=== PATIENT | female | born 1965 | race Two or more races ===

== ENCOUNTER 2019-01-02 14:50 | Emergency (ER) | payer OTHER ==
[~2019-01-02] VITALS: Ht 149.9 cm; Wt 70.8 kg
[2019-01-02] MEDS ORDERED: SODIUM CHLORIDE 0.9% 1,000 ML IV ONE (16:09)
[2019-01-02] MEDS ORDERED: ONDANSETRON HCL 4 MG/2 ML VIAL IV ONE (16:15)
[2019-01-02] MEDS ORDERED: MORPHINE SULF INJ 2 MG/ML SYRINGE 1ML IV ONE ×2 (16:15→20:00)
[2019-01-02 16:21] LABS: Basophils # (auto) 0 uL; Basophils % (auto) 0.8 % (0.0-2.0); Eosinophils # (auto) 0.1 uL; Eosinophils % (auto) 1.9 % (0.0-7.0); Hematocrit 38.9 % (36.0-46.0); Hemoglobin 12.5 g/dL (12.2-16.2); Lymphocytes # (auto) 2.3 uL; Lymphocytes % (auto) 38.7 % (10.0-50.0); Mean Corpuscular Hemoglobin 29.8 pg (28.0-32.0); Mean Corpuscular Hgb Conc. 32.2 g/dL (32.0-36.0); Mean Corpuscular Volume 92.6 fL (80.0-100.0); Monocytes # (auto) 0.4 uL; Monocytes % (auto) 5.9 % (0.0-12.0); Neutrophils # (auto) 3.1 uL; Neutrophils % (auto) 52.7 % (37.0-80.0); Nucleated Red Blood Cells % 0.1 %; Platelet Count (auto) 200 10^3/uL (140-450); Red Cell Distribution Width 13.6 % (11.8-14.3)
[2019-01-02 16:29] LABS: Albumin 3.1 g/dL (3.4-5.0); Anion Gap 12 (5-15); Blood Urea Nitrogen 15 mg/dL (7-18); Calcium 8.5 mg/dL (8.5-10.1); Carbon Dioxide 24 mmol/L (21-32); Chloride 102 mmol/L (98-107); Potassium 4.5 mmol/L (3.5-5.1); Sodium 138 mmol/L (136-145)
[2019-01-02 16:32] LABS: Alanine Aminotransferase 31 U/L (13-56); Aspartate Aminotransferase 12 U/L (15-37); Bilirubin, Total 0.4 mg/dL (0.2-1.0); GFR African American 73 mL/min; GFR Non-African American 60 mL/min
[2019-01-02 16:38] LABS: Alkaline Phosphatase 196 U/L (45-117)
[2019-01-02 16:42] LABS: Glucose 507 mg/dL (74-106)
[2019-01-02] MEDS ORDERED: InsuLIN REG 1unit/0.01ml Soln (100units/ml) IV ONE ×2 (16:45→19:45)
[2019-01-02 17:00] LABS: INR < 0.93 (0.9-1.15); Partial Thromboplastin Time 23.3 sec (23.64-32.05)
[2019-01-02 17:13] LABS: Urine Bacteria MOD /hpf (None Seen); Urine Blood Negative /uL (Negative); Urine Mucus FEW (None Seen); Urine Specific Gravity 1.025 (1.001-1.035); Urine WBC 2 /hpf (0 - 5)
[2019-01-02 17:25] LABS: BUN/Creatinine Ratio 14.7
[2019-01-02] MEDS ORDERED: SODIUM CHLORIDE 0.9% 500 ML IV ONE (19:39)
[2019-01-02] MEDS ORDERED: NITROFURANTOIN (MONO) 100 mg CAP PO ONE (19:45)
[2019-01-02] MEDS ORDERED: metroNIDAZOLE 500 MG TAB PO ONE (20:45)
[2019-01-02 23:31] VITALS: BP 121/75
== END 2019-01-02 23:39 | disposition short-term general hospital (02) ==
LOC: EDBD 14:50 → ER 14:59
DX: K52.9 Noninfective gastroenteritis and colitis, unspecified (principal); N39.0 Urinary tract infection, site not specified; R73.9 Hyperglycemia, unspecified; E78.5 Hyperlipidemia, unspecified; Z90.49 Acquired absence of other specified parts of digestive tract; Z90.710 Acquired absence of both cervix and uterus
CPT/HCPCS: 36415; 74176; 80053; 81001; 82962; 83690; 84484; 84702; 85025; 85610; 85730; 87086; 94761; 96361; 96374; 96375; 96376; 99285; J1815; J2270; J2405; J7030; J7040

== ENCOUNTER → 2019-09-14 | Emergency (ER) | payer OTHER ==
[~2019-09-14] VITALS: Ht 152.4 cm; Wt 73.9 kg
[2019-09-14 15:21] VITALS: BP 129/72
== END | disposition left against medical advice (07) ==
LOC: ER 15:15
DX: R07.89 Other chest pain (principal); Z53.21 Procedure and treatment not carried out due to patient leaving prior to being seen by health care provider
CPT/HCPCS: 93005

== ENCOUNTER 2020-06-04 15:41 | Emergency (ER) | payer SELFPAY ==
[~2020-06-04] VITALS: Ht 162.6 cm; Wt 72.6 kg
[2020-06-04 16:29] VITALS: BP 127/80
[2020-06-04] MEDS ORDERED: KETOROLAC TROMETH 60MG/2ML VIAL IM ONE (17:15)
== END 2020-06-04 17:45 | disposition home or self-care (01) ==
LOC: EDBD 15:41 → ER 15:41
DX: S09.90XA Unspecified injury of head, initial encounter (principal); S00.03XA Contusion of scalp, initial encounter; I10 Essential (primary) hypertension; E78.5 Hyperlipidemia, unspecified; Z90.49 Acquired absence of other specified parts of digestive tract; Z90.710 Acquired absence of both cervix and uterus; W22.8XXA Striking against or struck by other objects, initial encounter; Y93.89 Activity, other specified; Y92.89 Other specified places as the place of occurrence of the external cause; Y99.8 Other external cause status
CPT/HCPCS: 70450; 96372; 99284; J1885

== ENCOUNTER 2021-02-07 12:30 | Emergency (ER) | payer OTHER ==
[~2021-02-07] VITALS: Ht 149.9 cm; Wt 74.8 kg
[2021-02-07 13:30] LABS: Basophils # (auto) 0.1 10 ^3/uL (0-0.2); Eosinophils # (auto) 0.1 10 ^3/uL (0-0.8); Eosinophils % (auto) 2.1 % (0.0-7.0); Hematocrit 39.7 % (36.0-46.0); Hemoglobin 13.1 g/dL (12.2-16.2); Lymphocytes % (auto) 31.9 % (10.0-50.0); Mean Corpuscular Hemoglobin 29.4 pg (28.0-32.0); Mean Corpuscular Hgb Conc. 32.9 g/dL (32.0-36.0); Mean Corpuscular Volume 89.5 fL (80.0-100.0); Monocytes # (auto) 0.4 10 ^3/uL (0-1.3); Monocytes % (auto) 6.7 % (0.0-12.0); Neutrophils # (auto) 3.7 10 ^3/uL (1.6-8.6); Neutrophils % (auto) 58.3 % (37.0-80.0); Nucleated Red Blood Cells % 0.1 %; Red Blood Cells 4.44 10^6/uL (4.0-5.20); Red Cell Distribution Width 14.4 % (11.8-14.3); White Blood Cell 6.3 10^3/uL (4.4-10.8)
[2021-02-07 13:50] LABS: Chloride 101 mmol/L (98-107); Potassium 4.4 mmol/L (3.5-5.1); Sodium 134 mmol/L (136-145)
[2021-02-07 14:01] LABS: Alanine Aminotransferase 29 U/L (13-56); Albumin 3.3 g/dL (3.4-5.0); Alkaline Phosphatase 131 U/L (45-117); Anion Gap 7 (5-15); Aspartate Aminotransferase 14 U/L (15-37); BUN/Creatinine Ratio 20.6; Bilirubin, Total 0.6 mg/dL (0.2-1.0); Blood Urea Nitrogen 14 mg/dL (7-18); CRP High Sensitivity 1.56 mg/dL (< 0.3); Calcium 9.6 mg/dL (8.5-10.1); Carbon Dioxide 26 mmol/L (21-32); GFR African American 116 mL/min; GFR Non-African American 95 mL/min; Glucose 307 mg/dL (74-106); Total Protein 7.8 g/dL (6.4-8.2)
[2021-02-07] MEDS ORDERED: cefTRIAXone 1GM/50ML D5W 50 ML IV ONE (15:00)
[2021-02-07 17:30] VITALS: BP 115/74
== END 2021-02-07 21:59 | disposition left against medical advice (07) ==
LOC: ER 12:30 → EDBD 12:30 → ER 21:59
DX: J18.9 Pneumonia, unspecified organism (principal); E11.9 Type 2 diabetes mellitus without complications; E78.5 Hyperlipidemia, unspecified; I10 Essential (primary) hypertension; Z90.49 Acquired absence of other specified parts of digestive tract; Z90.710 Acquired absence of both cervix and uterus; Z20.822 Contact with and (suspected) exposure to COVID-19
CPT/HCPCS: 36415; 71045; 80053; 82728; 84484; 85025; 86141; 87426; 93005

== ENCOUNTER 2024-07-25 17:28 | Inpatient (IN) | payer OTHER ==
[~2024-07-25] VITALS: Ht 165.1 cm; Wt 68.0 kg
[2024-07-25 18:00] VITALS: PULSE 91; RESP 17; O2SAT 95
--- NOTE | 2024-07-25 18:35 | DVH ---
EXAM: CT HEAD WITHOUT CONTRAST INDICATION: new onset sz TECHNIQUE: CT of the head without intravenous contrast. Radiation Dose Information: CT Dose: CTDI volume is 54.07 mGy. Dose-length product is 957.5 mGy*cm The dose indicators for CT are the volume Computed Tomography (CT) Dose Index (CTDIvol) and the Dose Length Product (DLP), and are measured in units of mGy and mGy-cm, respectively. These indicators are not patient dose, but values generated from the CT scanner acquisition factors. The report includes radiation exposure data for exposures received during this examination. COMPARISON: HEAD WITHOUT CONTRAST on DOS: 06/04/20 FINDINGS: There is no evidence of acute intracranial hemorrhage, extra-axial collection, mass effect, midline s hift, herniation or hydrocephalus. The ventricles, sulci and cisterns are age appropriate. The bowers-white differentiation is intact. Patchy periventricular and subcortical white matter hypoattenuation is nonspecific but may be related to small vessel ischemic disease. The visualized paranasal sinuses and mastoid air cells are clear. The surrounding soft tissues and osseous structures are unremarkable. IMPRESSION: 1. No acute intracranial hemorrhage 2. No CT findings of territorial ischemia. 3. No significant change of 06/04/2020
--- NOTE | 2024-07-25 18:35 | DVH ---
EXAM: XR Chest, 1 View CLINICAL INDICATION: new onset sz TECHNIQUE: Frontal view of the chest. COMPARISON: CHEST PORTABLE on DOS: 02/07/21 FINDINGS: LUNGS AND PLEURAL SPACES: Unremarkable. No consolidation. No pneumothorax. HEART: Unremarkable. No cardiomegaly. MEDIASTINUM: Unremarkable. Normal mediastinal contour. BONES/JOINTS: Unremarkable. No acute fracture. OTHER FINDINGS: . . . IMPRESSION: No acute cardiopulmonary process. HS:Y
--- NOTE | 2024-07-25 18:36 | ED.PDOC ---
History of Present Illness HPI Comments 59F BIBA w/ no prior Hx associated to the c/c of SZ. Pt reports on the pt having a new onset of a seizure which was witnessed and lasted 30 minutes. Pt has bilateral aspect to the tongue and is mildly bruised. PMHx of DM, High Lipids, and HTN. SHx of Cholecystectomy and Hysterectomy. Denies chills, fever, N/V/D, SOB, CP or other associated symptom's, modifiers, or recent injuries or sick contact at this time. Chief Complaint: Seizure Time Seen by MD: 17:20 Primary Care Provider: UNKNOWN Reviewed Notes: Nurses Notes, Medications, Allergies Allergies: Coded Allergies: NO KNOWN ALLERGIES (Unverified , 01/02/19) Mode of Arrival: EMS Severity: Moderate Timing: Hours Duration: Since onset, Hours Prehospital treatment: None Past Medical History PAST MEDICAL HISTORY: DM, High Lipids, HTN Surgical History: Cholecystectomy, Hysterectomy MACHINE TESTER History: No Pertinent MACHINE TESTER History Family History Family History: Reviewed,noncontributory to illness Social History Smoker: Non-Smoker Alcohol: Denies ETOH Use Drugs: Denies Drug Use Lives In: Home Constitutional: denies: chills, diaphoresis, fatigue, fever, malaise, sweats, weakness, others EENTM: denies: blurred vision, double vision, ear bleeding, ear discharge, ear drainage, ear pain, ear ringing, eye pain, eye redness, hearing loss, mouth pain, mouth swelling, nasal discharge, nose bleeding, nose congestion, nose pain, photophobia, tearing, throat pain, throat swelling, voice changes, others Respiratory: denies: cough, hemoptysis, orthopnea, SOB at rest, shortness of breath, SOB with excertion, stridor, wheezing, others Cardiovascular: denies: chest pain, dizzy spells, diaphoresis, Dyspnea on exertion, edema, irregular heart beat, left arm pain, lightheadedness, palpitations, PND, syncope, others Gastrointestinal: denies: abdomen distended, abdominal pain, blood streaked bowels, constipated, diarrhea, dysphagia, difficulty swallowing, hematemesis, melena, nausea, poor appetite, poor fluid intake, rectal bleeding, rectal pain, vomiting, others Genitourinary: denies: abnormal vagina bleeding, burning, dyspareunia, dysuria, flank pain, frequency, hematuria, incontinence, pain, , vagina discharge , urgency, others Neurological: reports: seizure; denies: dizziness, fainting, headache, left sided numbness, left sided weakness, numbness, paresthesia, pre-existing deficit, right sided numbness, right sided weakness, speech problems, tingling, tremors, weakness, others Musculoskeletal: denies: back pain, gout, joint pain, joint swelling, muscle pain, muscle stiffness, neck pain, others Integumetry: denies: bruises, change in color, change in hair/nails, dryness, laceration, lesions, lumps, rash, wounds, others Allergic/Immunocompromised: denies: Difficulty Healing, Frequent Infections, Hives, Itching, others Hematologic/Lymphatic: denies: anemia, blood clots, easy bleeding, easy bruising, swollen glands, others Endocrine: denies: excessive hunger, excessive sweating, excessive thirst, excessive urination, flushing, intolerance to cold, intolerance to heat, unexplained weight gain, unexplained weight loss, others Psychiatric: denies: anxiety, bipolar disorder, depression, hopeless, panic disorder, schizophrenia, sleepless, suicidal, others All Other Systems: Reviewed and Negative Physical Exam Exam Comments Bilateral aspect of the tongue that is mildly bruised General Appearance: No Apparent Distress, Normal HEENT: Normal ENT Inspection, Pharynx Normal, TMs Normal Neck: Full Range of Motion, Non-Tender, Normal, Normal Inspection Respiratory: Chest Non-Tender, Lungs Clear, No Accessory Muscle Use, No Respiratory Distress, Normal Breath Sounds Cardiovascular: No Edema, No JVD, No Murmur, No Gallop, Normal Peripheral Pulses, Regular Rate/Rhythm Breast Exam: Deferred Gastrointestinal: No Organomegaly, Non Tender, No Pulsatile Mass, Normal Bowel Sounds, Soft Genitalia: Deferred Pelvic: Deferred Rectal: Deferred Extremities: No calf tenderness, Normal capillary refill, Normal inspection, Normal range of motion, Non-tender, No pedal edema Musculoskeletal : Apperance: Normal Neurologic: Alert, thread checker II-XII nml as Tested, No Motor Deficits, Normal Affect, Normal Mood, No Sensory Deficits Cerebellar Function: Normal Reflexes: Normal Skin: Dry, Normal Color, Warm Lymphatic: No Adenopathy Was a procedure done? Was a procedure done?: No X-Ray, Labs, Meds, VS Vital Signs Date Time Temp Pulse Resp B/P (MAP) Pulse Ox O2 Delivery O2 Flow Rate FiO2 07/25/24 20:00 75 14 96 Room Air* 0 21 07/25/24 20:00 80 07/25/24 18:00 91 17 156/73 (100) 95 07/25/24 18:00 91 17 95 Room Air* 0 21 07/25/24 17:55 98.0 110 20 166/84 (111) 96 07/25/24 17:43 96 Lab Test 07/25/24 18:02 Range/Units White Blood Count 7.7 4.4-10.8 10^3/uL Red Blood Count 3.69 L 4.0-5.20 10^6/uL Hemoglobin 11.2 L 12.2-16.2 g/dL Hematocrit 34.5 L 36.0-46.0 % Mean Corpuscular Volume 93.3 80.0-100.0 fL Mean Corpuscular Hemoglobin 30.3 28.0-32.0 pg Mean Corpuscular Hemoglobin Concent 32.5 32.0-36.0 g/dL Red Cell Distribution Width 13.8 11.8-14.3 % Platelet Count 253 140-450 10^3/uL Mean Platelet Volume 9.9 6.9-10.8 fL Neutrophils (%) (Auto) 43.1 37.0-80.0 % Lymphocytes (%) (Auto) 47.9 10.0-50.0 % Monocytes (%) (Auto) 5.1 0.0-12.0 % Eosinophils (%) (Auto) 3.3 0.0-7.0 % Basophils (%) (Auto) 0.6 0.0-2.0 % Neutrophils # (Auto) 3.3 1.6-8.6 10 ^3/uL Lymphocytes # (Auto) 3.7 0.4-5.4 10 ^3/uL Monocytes # (Auto) 0.4 0-1.3 10 ^3/uL Eosinophils # (Auto) 0.3 0-0.8 10 ^3/uL Basophils # (Auto) 0 0-0.2 10 ^3/uL Nucleated Red Blood Cells 0.1 % Sodium Level 139 136-145 mmol/L Potassium Level 5.5 H 3.5-5.1 mmol/L Chloride Level 104 98-107 mmol/L Carbon Dioxide Level 29 20-31 mmol/L Anion Gap 6 5-15 Blood Urea Nitrogen 16 9-23 mg/dL Creatinine 1.09 H 0.550-1.02 mg/dL Glomerular Filtration Rate Calc 59 >90 mL/min BUN/Creatinine Ratio 14.7 10.0-20.0 Serum Glucose 235 H 74-106 mg/dL Calcium Level 10.1 8.7-10.4 mg/dL Troponin I High Sensitivity 3 L </=34 ng/L Time of 1ST Reevaluation: 17:50 Reevaluation 1ST: Unchanged Reevaluation 2ND: Unchanged Patient Education/Counseling: Diagnosis, Treatment, Prognosis, Need For Follow Up Family Education/Counseling: No Family Present Additional Information - I reviewed the following notes from patient's past medical encounters:02/07/21 - Additional information was gathered from interviewing the following independent Historian: EMT - The following tests were ordered, and results were reviewed by me: Labs, X- Ray, EKG, CT - I reviewed and agreed with the following test results read by other provider: X-ray, CT - I discussed treatments and results with medical personnel and: (consultants, family) pt has not had another seizure, but appears slightly confused and cannot tell me about the event. the workup is unremarkable. she has new onset seizure and remains postictal. i will consult britni to admit pt here for continual observation until she returns to normal mentation Dr Clay has agreed to admit her here if she is unable to transfer her in the next 4 hours #[id number] Departure 1 Departure Time of Disposition: 20:02 Impression: Primary Impression: New onset seizure Additional Impression: Postictal confusion Disposition: 09 ADMITTED INPATIENT Condition: Stable Critical Care Note Critical Care Time?: No Stability Stability form required: No I personally scribed for RAYMON VIVAS MD ([email or web address]) on 07/25/24 at 18:36. Electronically submitted by Emiliano Lawrence ([email or web address]). RAYMON VIVAS MD Jul 25, 2024 18:36
[2024-07-25 18:47] LABS: Basophils # (auto) 0 10 ^3/uL (0-0.2); Basophils % (auto) 0.6 % (0.0-2.0); Eosinophils # (auto) 0.3 10 ^3/uL (0-0.8); Eosinophils % (auto) 3.3 % (0.0-7.0); Hematocrit 34.5 % (36.0-46.0); Hemoglobin 11.2 g/dL (12.2-16.2); Lymphocytes # (auto) 3.7 10 ^3/uL (0.4-5.4); Lymphocytes % (auto) 47.9 % (10.0-50.0); Mean Corpuscular Hemoglobin 30.3 pg (28.0-32.0); Mean Corpuscular Hgb Conc. 32.5 g/dL (32.0-36.0); Mean Corpuscular Volume 93.3 fL (80.0-100.0); Monocytes # (auto) 0.4 10 ^3/uL (0-1.3); Monocytes % (auto) 5.1 % (0.0-12.0); Neutrophils # (auto) 3.3 10 ^3/uL (1.6-8.6); Neutrophils % (auto) 43.1 % (37.0-80.0); Nucleated Red Blood Cells % 0.1 %; Platelet Count (auto) 253 10^3/uL (140-450); Red Blood Cells 3.69 10^6/uL (4.0-5.20); Red Cell Distribution Width 13.8 % (11.8-14.3); White Blood Cell 7.7 10^3/uL (4.4-10.8)
--- NOTE | 2024-07-25 18:50 | ECG ---
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
[2024-07-25 18:54] LABS: Anion Gap 6 (5-15); Carbon Dioxide 29 mmol/L (20-31); Chloride 104 mmol/L (98-107); Sodium 139 mmol/L (136-145)
[2024-07-25 18:55] LABS: Calcium 10.1 mg/dL (8.7-10.4)
[2024-07-25 19:00] LABS: BUN/Creatinine Ratio 14.7 (10.0-20.0); Blood Urea Nitrogen 16 mg/dL (9-23)
[2024-07-25 19:02] LABS: Glucose 235 mg/dL (74-106); Potassium 5.5 mmol/L (3.5-5.1)
[2024-07-25 20:00] VITALS: PULSE 75; RESP 14; O2SAT 96
--- NOTE | 2024-07-25 22:50 | DVHHPRES ---
History of Present Illness Resident Creating Document: FELIX DRAKE RESIDENT History of Present Illness This is a 59-year-old female with past medical history of hypertension, hyperlipidemia, type 2 diabetes mellitus, urinary incontinence presented to the ED by EMS with a chief complaint of new onset seizure 2 times before coming to the ED. the patient states that this afternoon she was all right and was talking with her son and and she had 2 spontaneous unprovoked seizures lasts for a short time but didn't mention the time with tonic-clonic contraction of the whole body and associated with post ictal confusion and lip bites. She also mentioned she has no h/o of seizure before and and there is no family history of seizure as well. In the ED the patient was tachycardic, blood pressure was 166/84 and blood sugar was 235. Initial CT head without contrast revealed no acute intracranial abnormality. The patient denies headache, blurry vision, neck pain, generalized body ache, muscle spasm, abdominal pain, nausea, vomiting urgency, dysuria, hematuria, or any loss control of bowel and bladder. Past Medical History Hypertension, hyperlipidemia, Type 2 diabetes mellitus, urinary incontinence Past Surgical History Cholecystectomy, bilateral breast implant Family History None Past Social History Lives with family Nonsmoker, occasional drinker and never tried any drugs before Review of Systems Constitutional: No: Fever, Chills, Sweats, Weakness, Malaise, Other Eyes: No: Pain, Vision change, Conjunctivae inflammation, Eyelid inflammation, Other, Redness ENT: No: Ear pain, Ear discharge, Nose pain, Nose discharge, Nose congestion, Mouth pain, Mouth swelling, Throat pain, Throat swelling, Other Respiratory: No: Cough, Dry, Shortness of breath, SOB with excertion, Wheezing, Hemoptysis, Pleuritic Pain, Sputum, Wheezing, Other Cardiovascular: No: Chest Pain, Palpitations, Orthopnea, Paroxysmal Noc. Dyspnea, Edema, Lt Headedness, Other Gastrointestinal: No: Nausea, Vomiting, Abdominal Pain, Diarrhea, Constipation, Melena, Hematochezia, Other Genitourinary: No Dysuria, No Frequency, No Incontinence, No Hematuria, No Retention, No Other Musculoskeletal: No: other, neck pain, shoulder pain, arm pain, back pain, hand pain, leg pain, foot pain Skin: No: Rash, Lesions, Jaundice, Bruising, Other Neurological: No: Weakness, Numbness, Incoordination, Change in speech, Confusion, Seizures, Other Allergies: Coded Allergies: NO KNOWN ALLERGIES (Unverified , 01/02/19) Exam Vital Signs Vital Signs Date Time Temp Pulse Resp B/P (MAP) Pulse Ox O2 Delivery O2 Flow Rate FiO2 07/25/24 20:00 75 14 96 Room Air* 0 21 07/25/24 18:00 156/73 (100) 07/25/24 17:55 98.0 Exam Physical examination: General Appearance: Alert, Oriented X3, Cooperative, No acute distress HEENT: Atraumatic, PERRLA, EOMI, Mucous membrane moist/pink Respiratory: Clear to auscultation, Normal air movement Cardiovascular: Regular rate, Normal S1, Normal S2, No murmurs, no chest wall tenderness Abdominal: Normal bowel sounds, Soft, No tenderness, No hepatospenomegaly, No masses Extremities: No clubbing, No cyanosis, No edema, Normal pulses, No tenderness/swelling Skin: No rashes, No breakdown, No significant lesion Neuro: Normal gait, Normal speech, Strength at 5/5 X4 ext, Normal tone, Sensation intact, grossly intact cranial nerves. Psych/Mental Status: Mental status NL, Mood NL Labs/Xrays Labs Test 07/25/24 18:02 Range/Units White Blood Count 7.7 4.4-10.8 10^3/uL Red Blood Count 3.69 L 4.0-5.20 10^6/uL Hemoglobin 11.2 L 12.2-16.2 g/dL Hematocrit 34.5 L 36.0-46.0 % Mean Corpuscular Volume 93.3 80.0-100.0 fL Mean Corpuscular Hemoglobin 30.3 28.0-32.0 pg Mean Corpuscular Hemoglobin Concent 32.5 32.0-36.0 g/dL Red Cell Distribution Width 13.8 11.8-14.3 % Platelet Count 253 140-450 10^3/uL Mean Platelet Volume 9.9 6.9-10.8 fL Neutrophils (%) (Auto) 43.1 37.0-80.0 % Lymphocytes (%) (Auto) 47.9 10.0-50.0 % Monocytes (%) (Auto) 5.1 0.0-12.0 % Eosinophils (%) (Auto) 3.3 0.0-7.0 % Basophils (%) (Auto) 0.6 0.0-2.0 % Neutrophils # (Auto) 3.3 1.6-8.6 10 ^3/uL Lymphocytes # (Auto) 3.7 0.4-5.4 10 ^3/uL Monocytes # (Auto) 0.4 0-1.3 10 ^3/uL Eosinophils # (Auto) 0.3 0-0.8 10 ^3/uL Basophils # (Auto) 0 0-0.2 10 ^3/uL Nucleated Red Blood Cells 0.1 % Sodium Level 139 136-145 mmol/L Potassium Level 5.5 H 3.5-5.1 mmol/L Chloride Level 104 98-107 mmol/L Carbon Dioxide Level 29 20-31 mmol/L Anion Gap 6 5-15 Blood Urea Nitrogen 16 9-23 mg/dL Creatinine 1.09 H 0.550-1.02 mg/dL Glomerular Filtration Rate Calc 59 >90 mL/min BUN/Creatinine Ratio 14.7 10.0-20.0 Serum Glucose 235 H 74-106 mg/dL Calcium Level 10.1 8.7-10.4 mg/dL Troponin I High Sensitivity 3 L </=34 ng/L Assessment/Plan Assessment/Plan Assessment and plan: # New onset seizure - 2 unprovoked seizure at home before coming to the ED - CT head without contrast revealed no acute intracranial abnormality - Initial EKG demonstrated sinus rhythm and troponins are unremarkable - Ordered UDS, serum alcohol, creatine kinase, LFT, lactic acid and magnesium - Ordered EEG - Consulted Neurology. # Lactic acidosis - IV normal saline at 100 ml/hr - Monitor lactic acid # Hypomagnesemia - Magnesium oxide p.o. 400 mg once # Hyperkalemia - Hyperkalemia protocol management - Lokelma 10 mg b.i.d for 48 hour - Monitor BMP # Hypertensive urgency - Lisinopril 10 mg po daily. # Type 2 diabetes mellitus, HbA1C 10.5% - Lantus 10 unit at Q.AM and moderate sliding scale of insulin # PUD prophylaxis - Pepcid 20 mg po daily # DVT prophylaxis - Lovenox 40 mg sc daily. Goal of care discussed with patient for more than 20 minutes full code Plan discussed with Dr. Salazar Plan discussed with: Patient, Other My Orders Orders - FELIX DRAKE RESIDENT Procedure Category Date Status Time Admit ADMIT 07/25/24 Verified 22:48 Powdered Sugar Pulverizer Operator For AK[facility]IL 07/25/24 Verified 24 Hours 22:48 Date of Service: Jul 25, 2024 Billing Provider: VENKATA SALAZAR MD Common Visit Codes: [id number] INP/OBS CARE (HIGH) FELIX DRAKE RESIDENT Jul 25, 2024 22:50 VENKATA SALAZAR MD Jul 28, 2024 11:59
[2024-07-25] MEDS: ALBUTEROL SULF 2.5 MG/0.5ML(0.5%) NEB SOLN NEB ONE (23:14)
[2024-07-25] MEDS: FUROSEMIDE 20 MG/2 ML VIAL IV ONE (23:49)
[2024-07-25] MEDS: InsuLIN REG 1unit/0.01ml Soln (100units/ml) IV ONE (23:49)
[2024-07-25] MEDS: SODIUM ZIRCONIUM CYCL 10 GM PAK PO ONE (23:49)
[2024-07-25] MEDS: DEXTROSE (50%) 50ML SYRG IV ONE (23:51)
[2024-07-26] VITALS (9 sets, daily range): BP systolic 118–140; BP diastolic 47–73; PULSE 81–103; RESP 16–18; TEMP 97.6–99.1; O2SAT 88–95
[2024-07-26] MEDS ORDERED: DEXTROSE (50%) 50ML SYRG IV PRN (00:15)
[2024-07-26] MEDS ORDERED: ATOR80TA PO (00:17)
[2024-07-26] MEDS ORDERED: ASPI1TAB20 PO (00:17)
[2024-07-26] MEDS ORDERED: METF-372 PO (00:17)
[2024-07-26] MEDS ORDERED: LISI20TA56 PO (00:17)
[2024-07-26] MEDS ORDERED: OXYB5TAB14 GT (00:17)
[2024-07-26] MEDS ORDERED: LEVEMIR SC (00:17)
[2024-07-26 02:43] LABS: Alanine Aminotransferase 18 U/L (7-40); Albumin 4.1 g/dL (3.2-4.8); Alkaline Phosphatase 110 U/L (46-116); Anion Gap 7 (5-15); BUN/Creatinine Ratio 13.5 (10.0-20.0); Bilirubin, Total 0.5 mg/dL (0.2-1.0); Blood Urea Nitrogen 15 mg/dL (9-23); Carbon Dioxide 29 mmol/L (20-31); Chloride 104 mmol/L (98-107); Potassium 4.2 mmol/L (3.5-5.1); Sodium 140 mmol/L (136-145); Total Protein 6.5 g/dL (5.7-8.2)
[2024-07-26 03:29] LABS: Aspartate Aminotransferase 13 U/L (13-40); Glucose 294 mg/dL (74-106); Magnesium 1.5 mg/dL (1.6-2.6)
[2024-07-26 03:37] LABS: Lactic Acid w/Reflex 3.1 mmol/L (0.4-2.0)
[2024-07-26] MEDS: MAGNESIUM OXIDE 400 MG TAB PO ONE (04:33)
[2024-07-26] MEDS: SODIUM CHLORIDE 0.9% 1,000 ML IV SCH (04:34)
[2024-07-26 05:07] LABS: Urine Bacteria None Seen /hpf (None Seen)
[2024-07-26 05:34] LABS: Amphetamine Screen, Urine Neg (NEGATIVE); Barbiturate Scree,Urine Neg (NEGATIVE); Benzodiazephine Screen, Urine Neg (NEGATIVE); Cannabinoid Screen, Urine Neg (NEGATIVE); Cocaine Screen, Urine Neg (NEGATIVE); Opiate Scree,Urine Neg (NEGATIVE); Phencyclidine Screen, Urine Neg (NEGATIVE)
[2024-07-26 05:43] LABS: Urine Blood Negative /uL (Negative); Urine Clarity Clear (Clear); Urine Hyaline Cast FEW /lpf (0 - 2); Urine Protein, UAD TRACE (Negative); Urine Specific Gravity 1.009 (1.001-1.035); Urine Squamous Epithelial Cell FEW /hpf (<5); Urine Urobilinogen Normal (Negative); Urine WBC 1 /hpf (0 - 5)
[2024-07-26 05:54] LABS: Urine Color STRAW (Yellow)
[2024-07-26] MEDS ORDERED: SODIUM ZIRCONIUM CYCL 10 GM PAK PO SCH (06:00)
[2024-07-26] MEDS: ACCU-CHEK COMFORT CURVE STRIP VI SCH (06:12)
[2024-07-26] MEDS: INSULIN LANTUS (GLARGINE) 1 /0.01ml (100units/ml) SC SCH (06:17)
[2024-07-26] MEDS: InsuLIN REG 1unit/0.01ml Soln (100units/ml) SC SCH ×2 (06:18→21:53)
--- NOTE | 2024-07-26 09:44 | DVHDSRES ---
Discharge Summary Date of Admission Resident Creating Document: NILA MULLER RESIDENT Jul 25, 2024 at 22:48 Date of Discharge: Jul 26, 2024 Admitting Diagnosis New onset of seizure Labs/Diagnostic Data: Laboratory Results Test 07/26/24 05:37 07/26/24 04:50 07/26/24 01:40 07/25/24 23:25 Lactic Acid Level 2.1 mmol/L (0.4-2.0) Urine Color Straw (Yellow) Urine Clarity Clear (Clear) Urine pH 6.0 (5.0-9.0) Urine Specific [place] 1.009 (1.001-1.035) Urine Protein Trace (Negative) Urine Ketones Negative (Negative) Urine Blood Negative /uL (Negative) Urine Nitrite Negative (Negative) Urine Bilirubin Negative (Negative) Urine Urobilinogen Normal mg/dL (Negative) Urine Leukocyte Esterase Negative /uL (Negative) Urine RBC 1 /hpf (0 - 4) Urine WBC 1 /hpf (0 - 5) Urine Squamous Epithelial Cells Few /hpf (<5) Urine Bacteria None seen /hpf (None Seen) Urine Hyaline Casts Few /lpf (0 - 2) Urine Glucose 3+ mg/dL (Normal) Urine Opiates Screen Neg (NEGATIVE) Urine Fentanyl Screen Neg (NEGATIVE) Urine Barbiturates Screen Neg (NEGATIVE) Urine Phencyclidine Screen Neg (NEGATIVE) Urine Amphetamines Screen Neg (NEGATIVE) Urine Benzodiazepines Screen Neg (NEGATIVE) Urine Cocaine Screen Neg (NEGATIVE) Urine Cannabinoids Screen Neg (NEGATIVE) Sodium Level 140 mmol/L (136-145) Potassium Level 4.2 mmol/L (3.5-5.1) Chloride Level 104 mmol/L (98-107) Carbon Dioxide Level 29 mmol/L (20-31) Anion Gap 7 (5-15) Blood Urea Nitrogen 15 mg/dL (9-23) Creatinine 1.11 mg/dL (0.550-1.02) Glomerular Filtration Rate Calc 58 mL/min (>90) BUN/Creatinine Ratio 13.5 (10.0-20.0) Serum Glucose 294 mg/dL (74-106) Calcium Level 10.0 mg/dL (8.7-10.4) Magnesium Level 1.5 mg/dL (1.6-2.6) Total Bilirubin 0.5 mg/dL (0.2-1.0) Aspartate Amino Transferase (AST) 13 U/L (13-40) Alanine Aminotransferase (ALT) 18 U/L (7-40) Alkaline Phosphatase 110 U/L (46-116) Total Protein 6.5 g/dL (5.7-8.2) Albumin 4.1 g/dL (3.2-4.8) Hemoglobin A1c 10.5 % A1C (<5.7) Creatine Kinase 73 U/L (34-145) B-Type Natriuretic Peptide 23.83 pg/mL (0-100) Thyroid Stimulating Hormone (TSH) 1.15 uIU/mL (0.55-4.78) Plasma/Serum Blood Alcohol < 3.0 mg/dL (<10) Test 07/25/24 23:01 07/25/24 18:02 POC Glucose 300 mg/dl (70-106) White Blood Count 7.7 10^3/uL (4.4-10.8) Red Blood Count 3.69 10^6/uL (4.0-5.20) Hemoglobin 11.2 g/dL (12.2-16.2) Hematocrit 34.5 % (36.0-46.0) Mean Corpuscular Volume 93.3 fL (80.0-100.0) Mean Corpuscular Hemoglobin 30.3 pg (28.0-32.0) Mean Corpuscular Hemoglobin Concent 32.5 g/dL (32.0-36.0) Red Cell Distribution Width 13.8 % (11.8-14.3) Platelet Count 253 10^3/uL (140-450) Mean Platelet Volume 9.9 fL (6.9-10.8) Neutrophils (%) (Auto) 43.1 % (37.0-80.0) Lymphocytes (%) (Auto) 47.9 % (10.0-50.0) Monocytes (%) (Auto) 5.1 % (0.0-12.0) Eosinophils (%) (Auto) 3.3 % (0.0-7.0) Basophils (%) (Auto) 0.6 % (0.0-2.0) Neutrophils # (Auto) 3.3 10 ^3/uL (1.6-8.6) Lymphocytes # (Auto) 3.7 10 ^3/uL (0.4-5.4) Monocytes # (Auto) 0.4 10 ^3/uL (0-1.3) Eosinophils # (Auto) 0.3 10 ^3/uL (0-0.8) Basophils # (Auto) 0 10 ^3/uL (0-0.2) Nucleated Red Blood Cells 0.1 % Troponin I High Sensitivity 3 ng/L (</=34) Other Laboratory Tests 07/26/24 01:40 07/25/24 18:02 Brief Hx & Hospital Course: Hospitalization summary/ Assessment: Ms. Parada, a 59-year-old female with a history of hypertension, hyperlipidemia, type 2 diabetes mellitus, and urinary incontinence presented to the ED after experiencing two new-onset, spontaneous seizures with tonic-clonic contractions, postictal confusion, and lip bites. She has no prior history of seizures and no family history of seizures. In the ED, she was tachycardic with a blood pressure of 166/84 and a blood sugar of 235. An initial CT head scan showed no acute intracranial abnormalities. She denies headache, blurry vision, neck pain, generalized body ache, muscle spasm, abdominal pain, nausea, vomiting, urgency, dysuria, hematuria, or loss of bowel and bladder control. She lives with her family, is a nonsmoker, occasional drinker, and has never used drugs. Her past surgical history includes cholecystectomy and bilateral breast implants. Patient was seen with at bedside. Medical conditions treated in hospital # new onset of seizure: To unprovoked seizure, CT head negative, UDS negative, other electrolyte disorder unremarkable, EEG, neurology follow up, MRI brain pending. Broad differentials. Denies any head injury. Patient is advised to avoid heavy machinery, driving and going at height with high-risk of fall. on IV keppra loading switch to oral 500 mg BID tomorrow. # recent history of TIA: Recent history of TIA in 3 months, could be another episode of TIA, during this. No residual weakness, physical examination unremarkable for any neurological deficits. Continue aspirin 81 mg and atorvastatin 40 mg daily # history of migraine: Known history of migraine could be a complex migraine with seizure episodes. She takes as needed Tylenol. # hypomagnesemia: Replenished, rechecked tomorrow. # hyperkalemia: Likely due to acid-base disturbance and hyperkalemia protocol, Nancy started, recheck potassium tomorrow. Patient on telemetry. # hypertensive urgency: Slowly reduce the blood pressure over 24-48 hours lisinopril 10 mg p.o. daily to continue. Add amlodipine # known essential hypertension: For hypertensive diabetic ideal blood pressure 130/80 or below as per AHA/ACC guidelines. # type 2 DM, uncontrolled HGB A1c 10.5: Diabetes counseling, Lantus to continue CC diet to continue # seasonal allergy: Claritin 10 mg as needed. # normocytic anemia: Baseline patient has anemia 11.2, no known bleeding # known claustrophobia: If needed please use Xanax before MRI Diet: CC diet GI prophylaxis: Pepcid 20 continue daily DVT prophylaxis: Lovenox 40mg/daily Bowel regimen: As needed Barriers to discharge: Medical diagnosis and management in progress. Patient lives with family and . At baseline independent for ADLs. PCP: [facility] Relevant To Admission: Neurology Patient care and plan discussed with Dr. Brunson Disposition: Patient remains in stable in telemetry. No concerning hemodynamically instability. Patient is ready for transfer to [facility]. Code status: Full code, discussed over 31 minutes. patient is hemodynamically stable for discharge to [facility]. Consults/Reason for consult Neurology, for seizure Operations or Procedures [place] [id number] Ph: [phone] DIAGNOSTIC IMAGING Diagnostic Imaging Report : [id number] Signed PATIENT: FRANKY PARADA ACCT: [id number] UNIT: [id number] : 1965 LOC: ER ROOM / BED: / AGE / SEX: 59 / F ADM STATUS: REG ER SERVICE [id number] ORDERING PHYSICIAN: RAYMON VIVAS MD PROCEDURE(s): HWOCT - HEAD WITHOUT CONTRAST REASON: new onset sz ORDER NUMBER(s): [id number], ACCESSION NUMBER(s): [id number] EXAM: CT HEAD WITHOUT CONTRAST INDICATION: new onset sz TECHNIQUE: CT of the head without intravenous contrast. Radiation Dose Information: CT Dose: CTDI volume is 54.07 mGy. Dose-length product is 957.5 mGy*cm The dose indicators for CT are the volume Computed Tomography (CT) Dose Index (CTDIvol) and the Dose Length Product (DLP), and are measured in units of mGy and mGy-cm, respectively. These indicators are not patient dose, but values generated from the CT scanner acquisition factors. The report includes radiation exposure data for exposures received during this examination. COMPARISON: HEAD WITHOUT CONTRAST on DOS: 06/04/20 FINDINGS: There is no evidence of acute intracranial hemorrhage, extra-axial collection, mass effect, midline shift, herniation or hydrocephalus. The ventricles, sulci and cisterns are age appropriate. The bowers-white differentiation is intact. Patchy periventricular and subcortical white matter hypoattenuation is nonspecific but may be related to small vessel ischemic disease. The visualized paranasal sinuses and mastoid air cells are clear. The surrounding soft tissues and osseous structures are unremarkable. IMPRESSION: 1. No acute intracranial hemorrhage 2. No CT findings of territorial ischemia. 3. No significant change of 06/04/2020 ATED BY: RUI MORELOS Jr., DO DICTATED DATE/TIME: 07/25/241831 SIGNED BY: RUI MORELOS Jr., SIGNED DATE/TIME: 07/25/241831 CC: [place] [address] Ph: [phone] DIAGNOSTIC IMAGING Diagnostic Imaging Report : [id number] Signed PATIENT: FRANKY PARADA ACCT: [id number] UNIT: [id number] : 1965 LOC: ER ROOM / BED: / AGE / SEX: 59 / F ADM STATUS: REG ER SERVICE [id number] ORDERING PHYSICIAN: RAYMON VIVAS MD PROCEDURE(s): CXRP - CHEST PORTABLE REASON: new onset sz ORDER NUMBER(s): [id number], ACCESSION NUMBER(s): [id number] EXAM: XR Chest, 1 View CLINICAL INDICATION: new onset sz TECHNIQUE: Frontal view of the chest. COMPARISON: CHEST PORTABLE on DOS: 02/07/21 FINDINGS: LUNGS AND PLEURAL SPACES: Unremarkable. No consolidation. No pneumothorax. HEART: Unremarkable. No cardiomegaly. MEDIASTINUM: Unremarkable. Normal mediastinal contour. BONES/JOINTS: Unremarkable. No acute fracture. OTHER FINDINGS: . . . IMPRESSION: No acute cardiopulmonary process. HS:Y ATED BY: BROCK LAFLEUR MD DICTATED DATE/TIME: 07/25/241831 SIGNED BY: BROCK LAFLEUR MD SIGNED DATE/TIME: 07/25/241831 CC: Condition at Discharge: Fair Final Diagnosis/Problems List # new onset of seizure: # recent history of TIA: # history of migraine: # hypomagnesemia: # hyperkalemia: # hypertensive urgency: # known essential hypertension: # type 2 DM, uncontrolled HGB A1c 10.5: # seasonal allergy: # normocytic anemia: # known claustrophobia: Discharge Disposition: Acute Care Facility (To [facility] for appropriate treatment as patient is hemodynamically stable) Discharge Instruct/Medications Diet: Consistent carbohydrate Activity: No Restrictions, As Tolerated Activity comment: As above Follow Up/Referral: As above Medications: As above Discharge Statement: "Patient was advised to return to the ER or call 911 if any headaches, dizziness, shortness of breath, chest pain, abdominal pain, bleeding, fevers, or worsening of medical condition. Patient was counseled about treatment plan, medications, possible side effects, patientverbalized understanding. All questions were answered to the best of my ability. This discharge took greater then 30 minutes in planning, reviewing documentation, counseling the patient, and discussing with other team members." ASSESSMENT ASSESSMENT Assessment Date of Service: Jul 26, 2024 Billing Provider: BRIAN JASON MD Common Visit Codes: 65795-NYY/OBS DISCH DAY >30min NILA MULLER RESIDENT Jul 26, 2024 09:44 BRIAN JASON MD Jul 28, 2024 21:51
[2024-07-26] MEDS: ENOXAPARIN SOD 40 MG/0.4 ML SYRINGE SC SCH (09:56)
[2024-07-26] MEDS: ATORVASTATIN 20 MG TAB PO SCH (09:58)
[2024-07-26] MEDS: LISINOPRIL 5 MG TAB PO SCH (09:59)
[2024-07-26] MEDS: FAMOTIDINE 20 MG TAB PO SCH (09:59)
[2024-07-26] MEDS: ASPirin-EC 81 mg tab PO SCH (09:59)
[2024-07-26 13:11] LABS: Basophils # (auto) 0.1 10 ^3/uL (0-0.2); Basophils % (auto) 0.9 % (0.0-2.0); Eosinophils # (auto) 0.1 10 ^3/uL (0-0.8); Eosinophils % (auto) 1.1 % (0.0-7.0); Hemoglobin 11.2 g/dL (12.2-16.2); Lymphocytes # (auto) 3.2 10 ^3/uL (0.4-5.4); Lymphocytes % (auto) 43.2 % (10.0-50.0); Mean Corpuscular Hemoglobin 30.3 pg (28.0-32.0); Mean Corpuscular Hgb Conc. 32.8 g/dL (32.0-36.0); Mean Corpuscular Volume 92.4 fL (80.0-100.0); Monocytes # (auto) 0.4 10 ^3/uL (0-1.3); Monocytes % (auto) 5.4 % (0.0-12.0); Neutrophils # (auto) 3.7 10 ^3/uL (1.6-8.6); Neutrophils % (auto) 49.4 % (37.0-80.0); Platelet Count (auto) 235 10^3/uL (140-450); Red Blood Cells 3.68 10^6/uL (4.0-5.20); Red Cell Distribution Width 13.6 % (11.8-14.3); White Blood Cell 7.4 10^3/uL (4.4-10.8)
[2024-07-26 13:43] LABS: Alanine Aminotransferase 17 U/L (7-40); Albumin 4.1 g/dL (3.2-4.8); Alkaline Phosphatase 97 U/L (46-116); Anion Gap 5 (5-15); Bilirubin, Total 0.6 mg/dL (0.2-1.0); Blood Urea Nitrogen 12 mg/dL (9-23); Calcium 10.4 mg/dL (8.7-10.4); Carbon Dioxide 31 mmol/L (20-31); Chloride 103 mmol/L (98-107); Creatine Kinase IFCC 106 U/L (34-145); Potassium 5.1 mmol/L (3.5-5.1); Sodium 139 mmol/L (136-145); Total Protein 6.6 g/dL (5.7-8.2)
[2024-07-26 13:50] LABS: Aspartate Aminotransferase 12 U/L (13-40); Glucose 198 mg/dL (74-106)
[2024-07-27 05:00] VITALS: BP 121/71; PULSE 76; RESP 18; TEMP 97.8; O2SAT 97
[2024-07-27 08:00] VITALS: PULSE 69; PULSE 84; RESP 16; O2SAT 97
[2024-07-27 09:00] VITALS: BP 147/66; PULSE 86; RESP 16; TEMP 98.2; O2SAT 97
[2024-07-27 10:14] LABS: Basophils # (auto) 0.1 10 ^3/uL (0-0.2); Basophils % (auto) 0.7 % (0.0-2.0); Eosinophils # (auto) 0.3 10 ^3/uL (0-0.8); Eosinophils % (auto) 3.5 % (0.0-7.0); Hematocrit 34.3 % (36.0-46.0); Hemoglobin 11.2 g/dL (12.2-16.2); Lymphocytes % (auto) 39.8 % (10.0-50.0); Mean Corpuscular Hemoglobin 30.3 pg (28.0-32.0); Mean Corpuscular Hgb Conc. 32.7 g/dL (32.0-36.0); Mean Corpuscular Volume 92.9 fL (80.0-100.0); Monocytes # (auto) 0.4 10 ^3/uL (0-1.3); Monocytes % (auto) 5.2 % (0.0-12.0); Neutrophils # (auto) 3.8 10 ^3/uL (1.6-8.6); Neutrophils % (auto) 50.8 % (37.0-80.0); Platelet Count (auto) 228 10^3/uL (140-450); Red Blood Cells 3.69 10^6/uL (4.0-5.20); Red Cell Distribution Width 13.9 % (11.8-14.3); White Blood Cell 7.4 10^3/uL (4.4-10.8)
[2024-07-27 10:37] LABS: Alanine Aminotransferase 18 U/L (7-40); Albumin 3.9 g/dL (3.2-4.8); Alkaline Phosphatase 101 U/L (46-116); Anion Gap 7 (5-15); Aspartate Aminotransferase 14 U/L (13-40); BUN/Creatinine Ratio 18.9 (10.0-20.0); Bilirubin, Total 0.5 mg/dL (0.2-1.0); Blood Urea Nitrogen 18 mg/dL (9-23); Carbon Dioxide 26 mmol/L (20-31); Chloride 104 mmol/L (98-107); Potassium 4.3 mmol/L (3.5-5.1); Sodium 137 mmol/L (136-145); Total Protein 6.4 g/dL (5.7-8.2)
[2024-07-27 10:38] LABS: Glucose 260 mg/dL (74-106)
[2024-07-27 13:00] VITALS: BP 150/73; PULSE 68; RESP 18; TEMP 98.2; O2SAT 97
[2024-07-27] MEDS ORDERED: ALPRAZolam 0.5 MG TAB PO PRN (13:00)
[2024-07-27] MEDS ORDERED: levETIRAcetam 1000 mg/100ml 100 ML IV SCH (13:03)
--- NOTE | 2024-07-27 13:10 | DVHPNRES ---
Progress Note Date Seen: Jul 27, 2024 Resident Creating Document: QUIN HERMAN IDALIA Has the PT tested + for MRSA If YES, has PT been informed?: No Medical Necessity Reason Pt with a Central, PICC or Fol: No Subjective Review of Systems Ms. Rush, a 59-year-old female with a history of hypertension, hyperlipidemia, type 2 diabetes mellitus, and urinary incontinence, presented to the emergency department after experiencing two new-onset, spontaneous seizures with tonic- clonic contractions, postictal confusion, and lip bites. She has no prior history of seizures and no family history of seizures. In the ED, she was tachycardic with a blood pressure of 166/84 and a blood sugar of 235. An initial CT head scan showed no acute intracranial abnormalities. She denies headache, blurry vision, neck pain, generalized body ache, muscle spasm, abdominal pain, nausea, vomiting, urgency, dysuria, hematuria, or loss of bowel and bladder control. She lives with her family, is a nonsmoker, occasional drinker, and has never used drugs. Her past surgical history includes cholecystectomy and bilateral breast implants. The patient was seen with her at bedside. Nonsmoker, occasional drinker and never tried any drugs before. PMHx: Hypertension, hyperlipidemia, diabetes mellitus type 2, urinary incontinence PSHx: Cholecystectomy, bilateral breast implant Today, patient seen and examined at the bedside. Patient is feeling better since admission and has no episodes of seizure. Patient reports: No new complaints, Feels better Objective vital signs Vital Sign Date Time Temp Pulse Resp B/P (MAP) Pulse Ox O2 Delivery O2 Flow Rate FiO2 07/27/24 09:48 147/66 07/27/24 09:00 98.2 86 16 97 98.2 07/27/24 08:00 Room Air* 0 21 Total Intake and Output 07/26/24 07/26/24 07/27/24 15:00 23:00 07:00 Intake Total 950 ml 375 ml 1620 ml Balance 950 ml 375 ml 1620 ml medications Current Medications Medications Dose Ordered Sig/Yoni Route Start Time Stop Time Status Last Admin Dose Admin Aspirin 81 mg DAILY PO 07/26/24 10:00 07/27/24 09:49 81 MG Atorvastatin Calcium 80 mg DAILY PO 07/26/24 10:00 07/27/24 09:47 80 MG Lisinopril 10 mg DAILY PO 07/26/24 10:00 07/27/24 09:48 10 MG Diagnostic Test (Pha) 1 strip ACHS 07/26/24 07:00 07/27/24 11:42 1 STRIP Insulin Human Regular HS SC 07/26/24 22:00 07/26/24 21:53 6 UNITS Insulin Human Regular AC SC 07/26/24 07:00 07/27/24 11:46 9 UNITS Dextrose 50 ml UD PRN IV 07/26/24 00:15 Insulin Glargine 10 units QAM SC 07/26/24 07:00 07/27/24 06:25 10 UNITS Famotidine 20 mg DAILY PO 07/26/24 10:00 07/27/24 09:48 20 MG Enoxaparin Sodium 40 mg DAILY SC 07/26/24 10:00 07/27/24 09:49 40 MG Sodium Chloride 1,000 ml @ 100 mls/hr Q10H IV 07/26/24 04:15 07/27/24 06:20 100 MLS/HR Magnesium Sulfate/ Dextrose 100 ml @ 100 mls/hr Q1HR IV 07/27/24 13:00 07/27/24 14:59 Amlodipine Besylate 5 mg DAILY PO 07/28/24 10:00 UNV Alprazolam 1 mg ONCE PRN PO 07/27/24 13:00 UNV Levetiracetam 100 ml @ 400 mls/hr DAILY IV 07/27/24 13:03 Examination General Appearance: Alert, Oriented X3, Cooperative, No acute distress HEENT: Atraumatic, PERRLA, EOMI, Mucous membrane moist/pink Respiratory: Clear to auscultation, Normal air movement Cardiovascular: Regular rate, Normal S1, Normal S2, No murmurs, no chest wall tenderness Abdominal: Normal bowel sounds, Soft, No tenderness, No hepatospenomegaly, No masses Extremities: No clubbing, No cyanosis, No edema, Normal pulses, No tenderness/swelling Skin: No rashes, No breakdown, No significant lesion Neuro: Normal gait, Normal speech, Strength at 5/5 X4 ext, Normal tone, Sensation intact, Cranial nerves 3-12 NL, Reflexes 2+ Psych/Mental Status: Mental status NL, Mood NL laboratory and microbiology Laboratory Tests 07/27/24 09:07 Test 07/27/24 09:07 Range/Units Serum Glucose 260 H 74-106 mg/dL Labs and/or images reviewed: Labs reviewed by me, Image(s) reviewed by me Problem List/Assessment/Plan Problem List/Assessment/Plan New onset seizure History of TIA History of migraine 2 unprovoked seizure at home before coming to the ED Head CT scan and MRIs are unremarkable Initial EKG demonstrated sinus rhythm and troponins are unremarkable Neurology is on the board, Continue Kappra 500mg BID Continue atorvastatin and aspirin Tylenol as needed Lactic acidosis IV normal saline at 100 ml/hr Monitor lactic acid Hypomagnesemia, repleted Hyperkalemia, normalized Hypertensive urgency Continue Lisinopril 10 mg po daily. Seasonal allergy Continue Claritin Uncontrolled Type 2 diabetes mellitus, HbA1C 10.5% Lantus 10 unit moderate sliding scale of insulin DIET: Diabetic diet DVT PROPHYLAXIS: Lovenox GI PROPHYLAXIS:: Famotidine CODE STATUS: Discussed for more than 21 minutes, full code DISPOSITION: Telemetry Patient's status discussed with the patient. Patient is stable to be transferred to the [place]. Case discussed with Dr. Brunson Plan discussed with: Patient, Other (RN) My Orders My Orders Orders - QUIN HERMAN RESDIRSOE Procedure Category Date Status Time * Director Of Operations For Therapy CONS 07/27/24 Transmitted Consult Magnesium Sulfate PHA 07/27/24 In Process 1gm/100ml 13:00 Levetiracetam 1000 PHA 07/27/24 In Process Mg/100ml (Levetiracet 13:03 Date of Service: Jul 27, 2024 Billing Provider: BRIAN JASON MD Common Visit Codes: 87044-[id number] INP/OBS CARE(HIGH) QUIN HERMAN RESDIENT Jul 27, 2024 13:10 BRIAN JASON MD Jul 28, 2024 21:34
[2024-07-27] MEDS: levETIRAcetam 500 MG TAB PO ONE (13:57)
[2024-07-27] MEDS: LORATADINE 10 MG TAB PO ONE (13:57)
[2024-07-27] MEDS: amLODIPine BESYLATE 5 MG TAB PO ONE (13:57)
[2024-07-27] MEDS: MAGNESIUM SULFATE 1GM/100ML 100 ML IV SCH (13:58)
[2024-07-27] MEDS: LORazepam 0.5 MG TAB PO ONE (14:25)
--- NOTE | 2024-07-27 15:13 | DVH ---
EXAM: MRI BRAIN HEAD WO CONTRAST CLINICAL HISTORY: Seizures. Recent history of TIA COMPARISON: CT head 07/25/2024 TECHNIQUE: Multiplanar, multisequence magnetic resonance imaging of the brain was performed without intravenous contrast. FINDINGS: There is normal brain volume and formation. There is mild chronic small-vessel ischemic changes. There are no hemorrhages, masses, mass effect, midline shift, herniation or cytotoxic edema following large vascular territory. There is no intra-axial or extra-axial fluid collections. There is no panda dence of hydrocephalus. The basal cisterns are patent. Vascular flow voids are maintained. On the coronal T2, the bilateral hippocampi are symmetric with no abnormal signal. Nonspecific partially empty sella. The cerebellar tonsils are normal position. The cerebellum is unr emarkable. The orbits and globes unremarkable. Mild mucoperiosteal thickening of the ethmoid air cells. Otherwi se, the paranasal sinuses clear. Minimal mucosal thickening of the mastoids. No worrisome calvarial lesions. IMPRESSION: No evidence of acute intracranial abnormalities.
[2024-07-27 17:00] VITALS: BP 137/68; PULSE 69; RESP 16; TEMP 98.4; O2SAT 97
[2024-07-27 21:00] VITALS: BP 135/65; PULSE 92; RESP 18; TEMP 97.9; O2SAT 93
[2024-07-27] MEDS: OXYBUTYNIN CHL 5 MG TAB PO SCH (21:51)
[2024-07-27] MEDS: levETIRAcetam 500 MG TAB PO SCH (21:51)
[2024-07-27] MEDS ORDERED: levETIRAcetam 500 MG TAB PO SCH (22:00)
[2024-07-28] MEDS ORDERED: amLODIPine BESYLATE 5 MG TAB PO SCH (10:00)
[2024-07-28] MEDS ORDERED: LORATADINE 10 MG TAB PO SCH (10:00)
--- NOTE | 2024-07-28 10:50 | DVHEEG2 ---
Neurology EEG Procedural Note Procedural Note EXAM DATE: 07/26/2024 REFERRING DOCTOR: Dr. Gutiérrez TECHNIQUE: Eighteen channels of EEG, 2 channels of EOG, and 1 channel of EKG were recorded using the International 10/20 system. CLINICAL DATA: The patient was referred for an EEG evaluation for the evidence of seizure disorder. MEDICATIONS: See chart BACKGROUND ACTIVITY: While the patient was awake, the background activity consisted of well regulated 10 Hz rhythmic waveforms, symmetrically distributed over both posterior quadrants and was reactive to eye opening. ACTIVATION: Hyperventilation: Not done Photic Stimulation: Not done Sleep: Stage I & II IMPRESSION: This is a normal EEG. No focal, lateralized, or epileptiform features are noted. If clinically indicated to rule out a seizure disorder, recommend repeat EEG with sleep deprivation. The EKG channel showed a regular heart rate of 78/minute. The CPT code of the study is 9519. TRAMAINE GUTIÉRREZ MD Jul 28, 2024 10:50
== END 2024-07-27 22:32 | disposition short-term general hospital (02) | DRG 101 ==
LOC: EDBD 17:28 → EDUNIT# 17:28 → ER 17:28 → TELE 22:48 → TELE-CENTR 23:56
PROVIDERS: ATTEND Psychiatry & Neurology Neurology
DX: R56.9 Unspecified convulsions (principal); F05 Delirium due to known physiological condition; E87.20 Acidosis, unspecified; E87.5 Hyperkalemia; E83.42 Hypomagnesemia; I16.0 Hypertensive urgency; E11.9 Type 2 diabetes mellitus without complications; E78.5 Hyperlipidemia, unspecified; D64.9 Anemia, unspecified; F40.240 Claustrophobia; G43.909 Migraine, unspecified, not intractable, without status migrainosus; Z90.710 Acquired absence of both cervix and uterus; Z90.49 Acquired absence of other specified parts of digestive tract; Z86.73 Personal history of transient ischemic attack (TIA), and cerebral infarction without residual deficits
CPT/HCPCS: 36415; 70450; 70551; 71045; 80048; 80053; 80307; 80320; 81001; 82550; 82962; 83036; 83605; 83735; 83880; 84443; 84484; 85025; 93005; 94640; 95819; G0378; J1815